=== PATIENT | female | born 2005 | race Caucasian/White ===

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

== ENCOUNTER 2023-06-17 15:06 | Outpatient (REF) | payer OTHER, SELFPAY ==
[2023-06-17 21:28] LABS: HCT 42.1 % (36.0-46.0); HGB 14.3 g/dL (11.2-15.7); MCH 29.2 pg (27.0-33.0); MCV 86 fL (80-95); MPV 10.5 fL (8.0-11.0); Platelet Count 311 10^3/uL (130-400); RBC 4.89 10^6/uL (3.93-5.22); RDW 13.4 % (11.7-14.6); RDW-SD 41.6 fL; WBC 7.92 10^3/uL (4.4-10.8)
[2023-06-17 21:50] LABS: FREE T4 0.95 ng/dL (0.76-1.46); TSH (W/Ref FT4) 1.26 uIU/mL (0.36-3.74)
[2023-06-20 08:50] LABS: Prolactin 7.2 ng/mL (See Note)
[2023-06-20 13:22] LABS: Chlamydia Result Negative (Negative); GC Result Negative (Negative)
== END 2023-06-17 15:07 | disposition home or self-care (01) ==
LOC: NCHCN 15:06
PROVIDERS: PCP Dentist; Visit Provider Family Medicine
DX: N92.5 Other specified irregular menstruation (principal); N93.8 Other specified abnormal uterine and vaginal bleeding; Z11.3 Encounter for screening for infections with a predominantly sexual mode of transmission
CPT/HCPCS: 85027; 87491; 87591; 84146; 84439; 84443